=== PATIENT | male | born 1975 | race Caucasian/White ===

== ENCOUNTER 2017-03-25 20:18 | Emergency (ER) | payer OTHER ==
[~2017-03-25] VITALS: Ht 182.9 cm; Wt 91.0 kg
[~2017-03-25 20:18] MED LIST: Z.0.NO CURRENT MEDS
[2017-03-25 20:36] VITALS: BP 127/79; PULSE 67; RESP 20; TEMP 98.3; O2SAT 98
[2017-03-25] MEDS ORDERED: SODIUM CHLOR 0.9% 1000 ML INJ 1,000 ML IV SCH (22:07)
[2017-03-25] MEDS ORDERED: SODIUM CHLORIDE 0.9% FLUSH 10 ML FLUSH IV FLUSH PRN (22:15)
[2017-03-25] MEDS ORDERED: ONDANSETRON HCL 4 MG/2 ML VIAL IVP ONE (22:15)
[2017-03-25] MEDS ORDERED: MORPHINE SULFATE 4 MG/ML INJ IV PUSH ONE (22:15)
[2017-03-25 22:39] LABS: AUTOMATED NEUTROPHIL # 4.3 TH/MM3 (1.8-7.7); BASOPHIL # 0.1 TH/MM3 (0-0.2); BASOPHIL % 0.9 % (0.0-2.0); EOSINOPHIL # 0.1 TH/MM3 (0-0.4); EOSINOPHIL % 1.1 % (0.0-4.0); HEMATOCRIT 46.3 % (39.0-51.0); LYMPH % 35.1 % (9.0-44.0); LYMPHOCYTE # 2.9 TH/MM3 (1.0-4.8); MEAN CELL VOLUME 86.7 FL (80.0-100.0); MEAN CORPUSCULAR HEMOGLOBIN 28.7 PG (27.0-34.0); MEAN CORPUSCULAR HGB CONC 33.1 % (32.0-36.0); MONO % 9.2 % (0.0-8.0); NEUT % 53.7 % (16.0-70.0); PLATELET COUNT 319 TH/MM3 (150-450); RED BLOOD COUNT 5.34 MIL/MM3 (4.50-5.90); RED CELL DISTRIBUTION WIDTH 12.5 % (11.6-17.2); WHITE BLOOD COUNT 8.2 TH/MM3 (4.0-11.0)
[2017-03-25 22:41] LABS: HEMO FLAGS DIFF FINAL
[2017-03-25 22:45] VITALS: BP 118/72; PULSE 50; RESP 18; O2SAT 97; O2SAT 99
[2017-03-25 22:50] LABS: BICARBONATE 27.7 MEQ/L (21.0-32.0)
[2017-03-25 22:52] LABS: APTT (PATIENT) 29.3 SEC (24.3-30.1); PROTHROMBIN TIME - PATIENT 11.3 SEC (9.8-11.6)
[2017-03-25 22:55] LABS: INDIRECT BILIRUBIN 0.4 MG/DL (0.0-0.8); TOTAL BILIRUBIN ADULT 0.5 MG/DL (0.2-1.0)
[2017-03-25] MEDS ORDERED: CITA20TA4 PO (23:13)
[2017-03-25] MEDS ORDERED: ZOLP10TA3 PO (23:14)
[2017-03-25] MEDS ORDERED: PANT20 PO (23:14)
[2017-03-25] MEDS ORDERED: XANA2TAB2 PO (23:14)
[2017-03-25] MEDS ORDERED: ZANT150T2 PO (23:15)
--- NOTE | 2017-03-25 23:24 | RADRPT ---
EXAM DATE/TIME: 03/25/2017 22:57 [place] COMPARISON: No previous studies available for comparison. EXTERNAL COMPARISON : [facility], Ultrasound liver, February 12, 2017 INDICATIONS : Right upper quadrant pain. MEDICAL HISTORY : Right upper quadrant pain. SURGICAL HISTORY : None. ENCOUNTER: Initial ACUITY: 2 months PAIN SCORE: 5/10 LOCATION: Right upper quadrant MEASUREMENTS: LIVER: 16.9 cm length COMMON DUCT: 4 mm RIGHT KIDNEY: 13.5 x 5.7 x 5.2 cm FINDINGS: LIVER: Normal echotexture without focal lesion or ductal dilatation. COMMON DUCT: No intraluminal mass or stone visualized. GALLBLADDER: Contains no stones, demonstrates no wall thickening or pericholecystic fluid. PANCREAS: The visualized portions are within normal limits. RIGHT KIDNEY: 1.8 cm cyst in the lower pole of right kidney, simple in appearance. CONCLUSION: 1. Simple cyst right kidney. 2. Otherwise unremarkable. Reed Bill MD on March 25, 2017 at 23:22 Board Certified Radiologist. This report was verified electronically.
[2017-03-25] MEDS ORDERED: PANTOPRAZOLE SODIUM 40 MG VIAL IVP ONE (23:30)
[2017-03-25] MEDS ORDERED: HYDROmorphone HCL PF 2 MG/ML VIAL IVS ONE (23:30)
[2017-03-25] MEDS ORDERED: ALUMINUM/MAGNESIUM/SIMETH 30 ML CUP PO ONE (23:30)
[2017-03-25] MEDS ORDERED: FAMOTIDINE 20 MG/2 ML VIAL IV PUSH ONE (23:30)
[2017-03-25] MEDS ORDERED: LIDOCAINE VISCOUS 2% SOLN 15 ML UDC PO ONE (23:30)
--- NOTE | 2017-03-25 23:36 | PD ---
HPI Chief Complaint: Abdominal Pain Time Seen by Provider: 22:00 Travel History International Travel<30 days: No Contact w/Intl Traveler<30days: No Traveled to known affect area: No History of Present Illness HPI Patient is a 41-year-old male who comes in complaining of right upper quadrant abdominal pain. He says he has been having issues with this for several months , but it has been much worse since Friday. He says that food makes the pain much worse and thus he has not been eating much. He says he almost passed out Friday while working. He says he felt dizzy prior to the event. He says he often feels dizzy and as if he might pass out while at work because he works outside. This has been worse this week since he has not really been eating. He has not had any chest pain or shortness of breath. He denies nausea or vomiting. He saw gastroenterology last week and had an upper endoscopy performed yesterday that showed a healing ulcer. He had an ultrasound done in January that showed no acute abnormalities. He had a CT of his abdomen and pelvis performed last week that showed no acute abnormalities. He was told he needs to have a HIDA scan done. Dr. Fajardo, of general surgery, suggested he come and get an ultrasound performed. He does say that the pain radiates up into his right shoulder as well as to his back. PFSH Past Medical History Cardiovascular Problems: No Gastrointestinal Disorders: Yes Hepatitis: No Neurologic: No Respiratory: No Ulcer: No Tetanus Vaccination: < 5 Years Influenza Vaccination: No Past Surgical History Appendectomy: No Cholecystectomy: No Other Surgery: Yes (Nasal surgery ) Social History Alcohol Use: No (Rarely) Tobacco Use: No (PT DENIES) Substance Use: No Allergies-Medications (Allergen,Severity, Reaction): Coded Allergies: No Known Allergies (Verified Allergy, Mild, 01/15/07) Reported Meds & Prescriptions Reported Meds & Active Scripts Active Reported Zantac (Ranitidine HCl) 150 Mg Tab 150 Mg PO HS Protonix (Pantoprazole Sodium) 20 Mg Tab 20 Mg PO BID Zolpidem (Zolpidem Tartrate) 10 Mg Tab 10 Mg PO HS PRN Xanax (Alprazolam) 2 Mg Tab 2 Mg PO BID PRN Citalopram (Citalopram Hydrobromide) 20 Mg Tab 20 Mg PO DAILY Review of Systems Except as stated in HPI: all other systems reviewed are Neg General / Constitutional: No: Fever, Chills HENT: No: Headaches, Lightheadedness Cardiovascular: No: Chest Pain or Discomfort Respiratory: No: Shortness of Breath Gastrointestinal: Positive: Abdominal Pain, No: Nausea, Vomiting Genitourinary: No: Dysuria Skin: No Rash, No Itching, No Change in Pigmentation Neurologic: Positive: Weakness, Dizziness Physical Exam Narrative GENERAL: Awake and alert, in no acute distress. SKIN: Focused skin assessment warm/dry. HEAD: Atraumatic. Normocephalic. EYES: Pupils equal and round. No scleral icterus. ENT: Mucous membranes pink and moist. NECK: Trachea midline. No JVD. CARDIOVASCULAR: Regular rate and rhythm. No murmur appreciated. RESPIRATORY: No accessory muscle use. Clear to auscultation. Breath sounds equal bilaterally. GASTROINTESTINAL: Abdomen soft, nondistended. Tender to palpation of the right upper quadrant. No rebound or guarding. MUSCULOSKELETAL: No obvious deformities. No clubbing. No cyanosis. No edema. NEUROLOGICAL: Awake and alert. No obvious cranial nerve deficits. Motor grossly within normal limits. Normal speech. PSYCHIATRIC: Appropriate mood and affect; insight and judgment normal. Data Data Last Documented VS Vital Signs Date Time Temp Pulse Resp B/P Pulse Ox O2 Delivery O2 Flow Rate FiO2 03/25/17 23:11 16 03/25/17 22:45 99 Room Air 03/25/17 20:36 98.3 67 127/79 Orders Basic Metabolic Panel (Bmp) (03/25/17 22:07) Complete Blood Count With Diff (03/25/17 22:07) Lipase (03/25/17 22:07) Prothrombin Time / Inr (Pt) (03/25/17 22:07) Act Partial Throm Time (Ptt) (03/25/17 22:07) Us Abdomen Gallbladder (03/25/17 ) Iv Access Insert/Monitor (03/25/17 22:07) Ecg Monitoring (03/25/17 22:07) Oximetry (03/25/17 22:07) Morphine Inj (Morphine Inj) (03/25/17 22:15) Ondansetron Inj (Zofran Inj) (03/25/17 22:15) Sodium Chlor 0.9% 1000 Ml Inj (Ns 1000 M (03/25/17 22:07) Sodium Chloride 0.9% Flush (Ns Flush) (03/25/17 22:15) Electrocardiogram (03/25/17 22:07) Hepatic Functional Panel (03/25/17 22:07) Hydromorphone Pf Inj (Dilaudid Pf Inj) (03/25/17 23:30) Famotidine Inj (Pepcid Inj) (03/25/17 23:30) Al-Mag Hy-Si 40-40-4 Mg/Ml Liq (Mag-Al P (03/25/17 23:30) Lidocaine 2% Viscous (Xylocaine 2% Visco (03/25/17 23:30) Pantoprazole Inj (Protonix Inj) (03/25/17 23:30) Labs Laboratory Tests Test 03/25/17 22:30 White Blood Count 8.2 TH/MM3 Red Blood Count 5.34 MIL/MM3 Hemoglobin 15.3 GM/DL Hematocrit 46.3 % Mean Corpuscular Volume 86.7 FL Mean Corpuscular Hemoglobin 28.7 PG Mean Corpuscular Hemoglobin 33.1 % Concent Red Cell Distribution Width 12.5 % Platelet Count 319 TH/MM3 Mean Platelet Volume 7.5 FL Neutrophils (%) (Auto) 53.7 % Lymphocytes (%) (Auto) 35.1 % Monocytes (%) (Auto) 9.2 % Eosinophils (%) (Auto) 1.1 % Basophils (%) (Auto) 0.9 % Neutrophils # (Auto) 4.3 TH/MM3 Lymphocytes # (Auto) 2.9 TH/MM3 Monocytes # (Auto) 0.8 TH/MM3 Eosinophils # (Auto) 0.1 TH/MM3 Basophils # (Auto) 0.1 TH/MM3 CBC Comment DIFF FINAL Differential Comment Prothrombin Time 11.3 SEC Prothromb Time International 1.0 RATIO Ratio Activated Partial 29.3 SEC Thromboplast Time Sodium Level 138 MEQ/L Potassium Level 4.0 MEQ/L Chloride Level 104 MEQ/L Carbon Dioxide Level 27.7 MEQ/L Anion Gap 6 MEQ/L Blood Urea Nitrogen 12 MG/DL Creatinine 1.10 MG/DL Estimat Glomerular Filtration 73 ML/MIN Rate Random Glucose 92 MG/DL Calcium Level 8.9 MG/DL Total Bilirubin 0.5 MG/DL Direct Bilirubin 0.1 MG/DL Indirect Bilirubin 0.4 MG/DL Aspartate Amino Transf 16 U/L (AST/SGOT) Alanine Aminotransferase 24 U/L (ALT/SGPT) Alkaline Phosphatase 73 U/L Total Protein 7.7 GM/DL Albumin 3.9 GM/DL Lipase 272 U/L MDM Medical Decision Making Medical Screen Exam Complete: Yes Emergency Medical Condition: Yes Medical Record Reviewed: Yes Differential Diagnosis Cholelithiasis versus cholecystitis versus gastritis versus peptic ulcer disease Narrative Course Patient is a 41-year-old male who comes in complaining of abdominal pain. Exam shows right upper quadrant tenderness to palpation. IV established, labs sent. Labs show no acute abnormalities. Patient given morphine, Zofran, IV fluids. Ultrasound performed shows no acute abnormalities. Patient states he is still having a lot of pain. Given a dose of Dilaudid as well as a GI cocktail. Patient would like to go home. He'll be discharged with a prescription for Percocet. Advised follow-up with Dr. Fajardo. Advised to return to the ED as needed for any worsening symptoms. Diagnosis Primary Impression: Abdominal pain Qualified Code: R10.11 - Right upper quadrant abdominal pain Patient Instructions: Abdominal Pain (ED), Cholecystitis (ED), General Instructions Additional Instructions: Follow-up with Dr. Fajardo for further management. Continue to take Protonix and Zantac. Take pain medicine as needed. Return to the emergency department as needed for any worsening symptoms. Scripts Oxycodone-Acetaminophen (Percocet)5-325 mg Tab1 Tab PO Q6H PRN (PAIN) #15 TAB Ref 0 Prov:Rosa Payne MD 03/26/17 Disposition: 01 DISCHARGE HOME Condition: Stable Rosa Payne MD Mar 25, 2017 23:36
[2017-03-25 23:45] VITALS: BP 113/77; PULSE 46; RESP 18; O2SAT 98
[2017-03-26] MEDS ORDERED: PERC5TAB12 PO (00:24)
[2017-03-26 00:27] VITALS: RESP 18
[2017-03-26 00:47] VITALS: BP 113/70
--- NOTE | 2017-03-26 08:22 | EKG ---
Date Performed: 03/25/2017 Time Performed: 22:23:38 PTAGE: 41 years EKG: SINUS BRADYCARDIA WITH SINUS ARRHYTHMIA BORDERLINE ECG NO PREVIOUS TRACING DOCTOR: Chago Drummond Interpretating Date/Time 03/26/2017 08:21:57
[2017-03-28] MEDS ORDERED: HYDR-3288 PO (15:01)
== END 2017-03-26 00:47 | disposition home or self-care (01) ==
LOC: PHED 20:18
DX: R10.11 Right upper quadrant pain (principal)
CPT/HCPCS: 76705; 80048; 80076; 83690; 85025; 85610; 85730; 93005; 96361; 96374; 96375; 99285; J1170; J2270; J2405; J7030

== ENCOUNTER → 2017-03-28 | Day surgery (SDC) | payer OTHER ==
[~2017-03-28] VITALS: Ht 182.9 cm; Wt 91.0 kg
[~2017-03-28] MED LIST changes: +*HYDROmorphone PF 1 MG VIAL PERIprocedural Use ONLY ONE; +ACETAMINOPHEN 1000 MG/100 ML VIAL IV SCH; +BUPIVACAINE/EPINEPHRINE 0.25% PF 30 ML VIAL ONE; +CHLORHEXIDINE GLUCONATE 2 % 1 PACK (2 CLOTHS) TOPICAL PRN; +CITA20TA4 PO; +FAMOTIDINE 20 MG/2 ML VIAL ONE; +HYDR-3288 PO; +HYDROmorphone HCL PF 2 MG/ML VIAL ONE; +INSULIN HUMAN REGULAR 1,000 UNITS/10 ML VIAL SQ PRN; +LACTATED RINGER'S 1000 ML INJ 1,000 ML ONE; +LACTATED RINGER'S 1000 ML IV PRN; +MEPERIDINE HCL 25 MG/ML VIAL ONE; +METOPROLOL TARTRATE 25 MG TAB PO PRN; +MIDAZOLAM HCL 2 MG/2 ML VIAL ONE; +MORPHINE SULFATE 8 MG/ML INJ ONE; +NEOSTIGMINE 3 MG/3 ML SYR IV ONE; +ONDANSETRON HCL 4 MG/2 ML VIAL IV PUSH ONE; +PANT20 PO; +PERC5TAB12 PO; +POVIDONE IODINE 5% (ANTISEPSIS KIT) 4 APPLICATIONS EACH NARE PRN; +PROPOFOL 200 MG/20 ML AMP IV ONE; +SODIUM CHLOR 0.9% 250 ML INJ 250 ML ONE; +SODIUM CHLORID 0.9% 500 ML IV PRN; +VANCOMYCIN HCL 1000 MG ON-CALL/NS 250 ML IV SCH; +VANCOMYCIN HCL 1000 MG VIAL ONE; +XANA2TAB2 PO; -Z.0.NO CURRENT MEDS; +ZANT150T2 PO; +ZOLP10TA3 PO; +ceFAZolin 1,000 MG/NS 100 ML IV SCH; +fentaNYL CITRATE 250 MCG/5 ML AMP ONE
[2017-03-28 12:22] VITALS: BP 130/82; PULSE 61; RESP 18; TEMP 97.5; O2SAT 95
--- NOTE | 2017-03-28 15:06 | HHI.PR ---
cc: Feliberto Fajardo MD Immediate Post Op Note Procedure Date: Mar 28, 2017 Pre Op Diagnosis: Persistent RUQ pain Post Op Diagnosis: Same, secondary to colonic adhesion and biliary colic Surgeon: Feliberto Fajardo Senior Radiation Therapist(s): IRMA Cannon Procedure: Laparoscopic cholecystectomy Laparoscopic lysis of adhesions Findings: Dual cystic arterial system Colonic adhesions x 2 with potential for internal hernia Complications: None Specimen(s) removed: Gallbladder to pathology Estimated blood loss: <5ml Anesthesia: General Drains: None IVF (1000 ml) Patient to: PACU Patient Condition: Good Date/Time of Procedure: SEE SURGICAL CARE RECORD Feliberto Fajardo MD Mar 28, 2017 15:05
[2017-03-28 16:40] VITALS: BP 106/78; PULSE 94; RESP 16; TEMP 98.7; O2SAT 94
--- NOTE | 2017-03-30 18:29 | MP ---
cc: DANIELE FAJARDO M.D. DATE OF SURGERY: 03/28/2017. PREOPERATIVE DIAGNOSIS: Persistent right upper quadrant pain with biliary colic. POSTOPERATIVE DIAGNOSIS: Persistent right upper quadrant pain with biliary colic with colonic internal adhesions. OPERATIVE PROCEDURE PERFORMED: Laparoscopic cholecystectomy. SURGEON: Daniele Fajardo MD. ANESTHESIA: General endotracheal anesthesia. ESTIMATED BLOOD LOSS: Less than 5 mL. FLUIDS: 1000 mL crystalloid. COMPLICATIONS: None. DRAINS: None. SPECIMEN: Gallbladder to pathology. DESCRIPTION OF THE PROCEDURE IN DETAIL: The patient was taken to the operating room and placed on the operating table in the supine position. After an adequate level of general endotracheal anesthesia was achieved, the abdomen was prepped and draped in the usual fashion. Time-out was taken confirming the correct patient, site and procedure to be performed. Skin and subcutaneous tissue was infiltrated with local anesthetic and incision made in the umbilicus and carried through the fascia sharply. The peritoneal cavity was directly visualized. A 12 mm balloon trocar was inserted and the balloon inflated. The patient was placed in reverse Trendelenburg position. Three 5 mm trocars were then placed with the first to the right of the falciform ligament and second and third in the right subcostal regions. All entered the abdominal cavity under direct vision uneventfully. The fundus of the gallbladder was grasped and retracted upward. The cystic duct / infundibular junction and cystic artery were circumferentially dissected. There was both an anterior and inferior cystic artery branch. Both were dissected free, doubly clipped proximally, singly clipped on the gallbladder side and divided. As the patient had normal liver function tests and did not have a dilated common bile duct and did not have stones, cholangiogram was not obtained. The cystic duct was doubly clipped distally, singly clipped on the gallbladder side and divided. The gallbladder was dissected off the liver bed with electrodissection. The gallbladder was entered at one point and all bile was aspirated from the gallbladder. When this was completed, the gallbladder was completely removed from the liver bed and grasped with a grasping forceps with a large grasper. While observing via the upper 5 mm trocar site, the gallbladder was removed via the umbilicus and passed off the table. The upper abdomen was re-visualized. The cystic artery stumps, cystic duct stump and liver bed were all seen to be clean and dry. Careful examination of the upper abdomen in the right upper quadrant revealed two adhesions on the colon with one between the cecum in the mid transverse colon that appeared significant across the omentum. Both the adhesions were sharply divided with scissors. The second larger adhesion was felt to be at significant potential risk for an internal hernia with loops of bowel being able to insert underneath this adhesion. When this was completed, the upper abdomen was re-visualized and seen to be hemostatic. Insufflation was discontinued, and after examining the entire right upper quadrant and seeing no other pathology, the upper abdominal trocars were removed. After desufflation with no bleeding noted from the trocar sites, the laparoscope and umbilical port were removed. The fascia was closed in the umbilicus with #0 Vicryl suture in both simple interrupted and [id number] fashion. The remaining local anesthetic was injected into the trocar sites. The skin was closed at each of the trocar sites with 4-0 Vicryl in an interrupted buried fashion. All trocar sites were dressed with Steri-Strips. The patient tolerated the proceed procedure well. He was extubated and taken back to the recovery room in stable condition. MD MALIA Echeverria/NOE /3:07 PM /6:20 PM
== END | disposition home or self-care (01) ==
LOC: PHSDC 11:07
PROVIDERS: ATTEND Surgery Trauma Surgery
DX: K81.1 Chronic cholecystitis (principal); K66.0 Peritoneal adhesions (postprocedural) (postinfection); R10.11 Right upper quadrant pain; K21.9 Gastro-esophageal reflux disease without esophagitis; Z87.891 Personal history of nicotine dependence; Z87.11 Personal history of peptic ulcer disease; Z79.899 Other long term (current) drug therapy
CPT/HCPCS: 00790; 47562; 88304; J0131; J0690; J1170; J2175; J2250; J2270; J2405; J2710; J3010; J3370; J7050; J7120